=== PATIENT | male | born 1965 | race African-American/Black ===

== ENCOUNTER 2016-08-18 08:06 | Emergency (ER) | payer SELFPAY ==
[~2016-08-18] VITALS: Ht 167.6 cm; Wt 75.0 kg
[2016-08-18 08:08] VITALS: BP 161/79; PULSE 74; RESP 15; TEMP 97.8; O2SAT 98
--- NOTE | 2016-08-18 09:14 | PD ---
HPI . penile discharge for 2-3 days Chief Complaint: Complaint Time Seen by Provider: 09:13 Travel History International Travel<30 days: No Contact w/Intl Traveler<30days: No Traveled to known affect area: No History of Present Illness HPI 51-year-old male with no significant past medical history here with complaints of penile discharge for approximately 2-3 days. Patient says he had unprotected sex on Saturday and shortly after noticed that there was a white/ yellow discharge coming from the tip of his penis. He does admit to pain with urination. He decided to come to the emergency department for further evaluation. He denies any testicular pain or swelling. He has no rashes or lesions on his body. [facility] Social History Tobacco Use: No Allergies-Medications (Allergen,Severity, Reaction): Coded Allergies: No Known Allergies (Unverified , 08/18/16) Reported Meds & Prescriptions Reported Meds & Active Scripts Active Azithromycin 500 Mg Tab 1,000 Mg PO ONCE Review of Systems General / Constitutional: No: Fever Eyes: No: Visual changes HENT: No: Headaches Cardiovascular: No: Chest Pain or Discomfort Respiratory: No: Shortness of Breath Gastrointestinal: No: Abdominal Pain Genitourinary: Positive: Dysuria, Other (penile discharge) Musculoskeletal: No: Pain Skin: No Rash Neurologic: No: Weakness Psychiatric: No: Depression Endocrine: No: Polydipsia Hematologic/Lymphatic: No: Easy Bruising Physical Exam Narrative GENERAL: AAO x 3, no acute distress, Well-nourished, well-developed patient. SKIN: Warm and dry. No visible rashes or bruising. HEAD: Normocephalic and atraumatic. EYES: No scleral icterus. No injection or drainage. EOM intact, PERRLA ENT: No nasal drainage noted. Mucous membranes pink. Airway patent. NECK: Supple, trachea midline. No JVD. CARDIOVASCULAR: Regular rate and rhythm without murmurs, gallops, or rubs. RESPIRATORY: Breath sounds equal bilaterally. No accessory muscle use. No rhonchi or rales. GASTROINTESTINAL: Abdomen soft, non-tender, nondistended. GENITAL: Pranav BURNETT present: + yellow/white colored thin discharge. No lesions or excoriations. EXTREMITIES: No cyanosis or edema. BACK: Nontender without obvious deformity. No CVA tenderness. PSYCH: AAO x 3, normal affect. Data Data Last Documented VS Vital Signs Date Time Temp Pulse Resp B/P Pulse Ox O2 Delivery O2 Flow Rate FiO2 08/18/16 08:08 97.8 74 15 161/79 98 Orders Gc And Chlamydia Pcr (08/18/16 09:17) Ceftriaxone Inj (Rocephin Inj) (08/18/16 09:30) Sodium Chloride 0.9% Flush (Ns Flush) (08/18/16 09:30) Lidocaine 1% Inj (50 Ml) (Xylocaine 1% I (08/18/16 09:30) MDM Medical Decision Making Medical Screen Exam Complete: Yes Emergency Medical Condition: Yes Medical Record Reviewed: Yes Differential Diagnosis Urethritis, gonorrhea, chlamydia, less likely syphilis Narrative Course 51-year-old male with no significant past medical history here with complaints of penile discharge for approximately 2-3 days. Patient says he had unprotected sex on Saturday and shortly after noticed that there was a white/ yellow discharge coming from the tip of his penis. He does admit to pain with urination. He decided to come to the emergency department for further evaluation. He denies any testicular pain or swelling. He has no rashes or lesions on his body. Patient seen and examined. He does have discharge from his penis. I will go ahead and treat for chlamydia and gonorrhea. I have administered Rocephin in the emergency department. He will be discharged home with azithromycin 1 g. He has been advised to follow-up with his primary care provider. We discussed safe sexual practices. Patient verbalized understanding of instructions, questions were answered, and thanked me for their care. I advised them if their condition worsens, please return to the nearest emergency room for further care. Diagnosis Primary Impression: Urethritis Patient Instructions: General Instructions, Nonspecific Urethritis in Men (ED) Additional Instructions: Please return to emergency department if your symptoms return or worsen. Follow up with your primary care provider for any further testing required. Take medications as prescribed. You may experience tenderness at the site of the injection. This is normal. You can use ice as needed. Med/Other Pt SpecificInfo: Prescription(s) given Scripts Azithromycin 500 Mg Tab1,000 Mg PO ONCE #2 TAB Ref 0 Prov:Jaziel Allred MD 08/18/16 Disposition: 01 DISCHARGE HOME Condition: Stable Candis Ward Aug 18, 2016 09:14
[2016-08-18] MEDS ORDERED: AZIT500T2 PO (09:19)
[2016-08-18] MEDS ORDERED: cefTRIAXone 250 MG VIAL IM ONE (09:30)
[2016-08-18] MEDS ORDERED: LIDOCAINE HCL 1% 50 ML VIAL XX ONE (09:30)
[2016-08-18] MEDS ORDERED: SODIUM CHLORIDE 0.9% FLUSH 10 ML FLUSH IVF PRN (09:30)
[2016-08-18 13:04] LABS: CHLAMYDIA PCR NOT DETECTED (NOT DETECT); NEISSERIA PCR DETECTED (NOT DETECT)
== END 2016-08-18 09:53 | disposition home or self-care (01) ==
LOC: NETRI 08:06
DX: N34.2 Other urethritis (principal)
CPT/HCPCS: 87491; 87591; 96374; 99283; J0696

== ENCOUNTER 2017-10-05 07:56 | Emergency (ER) | payer SELFPAY ==
[~2017-10-05] VITALS: Ht 165.1 cm; Wt 80.0 kg
[~2017-10-05 07:56] MED LIST: AZIT500T2 PO
[2017-10-05 07:59] VITALS: BP 170/84; PULSE 85; RESP 16; TEMP 98.5; O2SAT 99
--- NOTE | 2017-10-05 08:36 | PD ---
HPI Chief Complaint: Complaint Time Seen by Provider: 08:27 Travel History International Travel<30 days: No Contact w/Intl Traveler<30days: No Traveled to known affect area: No History of Present Illness HPI 52-year-old male presents to emergency department with complaint of burning on urination and drainage from his penis since yesterday. Said he had unprotected sex on Saturday. Denies testicular pain, swelling. Denies penile pain. Denies abdominal pain, fever, vomiting. Unknown exposure to STD/STI. Has not taken any medication or try any treatments to alleviate his symptoms. No known aggravating or relieving factors. Symptoms are mild to moderate in severity. No primary care provider. No known allergies. Denies significant past medical history. Has no medical complaints. No other modifying factors or associated signs and symptoms. [facility] Social History Tobacco Use: No Allergies-Medications (Allergen,Severity, Reaction): Coded Allergies: No Known Allergies (Unverified , 08/18/16) Reported Meds & Prescriptions Reported Meds & Active Scripts Active Keflex (Cephalexin) 500 Mg Cap 500 Mg PO Q12H 7 Days Review of Systems Except as stated in HPI: all other systems reviewed are Neg Physical Exam Narrative GENERAL: Well-nourished, well-developed black male patient, in no acute distress SKIN: Warm and dry. HEAD: Atraumatic. Normocephalic. EYES: Pupils equal and round. ENT: Mucosa pink and moist. NECK: Trachea midline. No lymphadenopathy. CARDIOVASCULAR: Regular rate RESPIRATORY: No accessory muscle use. GASTROINTESTINAL: Flat. GENITOURINARY: Exam done in the presence of a nurse. UnCircumcised. Testes descended bilaterally without evidence of rotation. No lesions or erythema. Milky white urethral discharge. MUSCULOSKELETAL: No obvious deformities. No clubbing. No cyanosis. No edema. NEUROLOGICAL: Awake and alert. Oriented 3. No obvious cranial nerve deficits. Motor grossly within normal limits. Normal speech. Moves all extremities. 5/5 strength to all extremities. PSYCHIATRIC: Appropriate mood and affect; insight and judgment normal. Data Data Last Documented VS Vital Signs Date Time Temp Pulse Resp B/P (MAP) Pulse Ox O2 Delivery O2 Flow Rate FiO2 10/05/17 07:59 98.5 85 16 170/84 (112) 99 Orders Orders Gc And Chlamydia Pcr (10/05/17 08:28) Urinalysis - C+S If Indicated (10/05/17 08:28) Azithromycin Powd Pack (Zithromax Powd P (10/05/17 08:45) Ceftriaxone Inj (Rocephin Inj) (10/05/17 08:45) Lidocaine 1% Inj (50 Ml) (Xylocaine 1% I (10/05/17 08:45) Metronidazole (Flagyl) (10/05/17 08:45) Urine Culture (10/05/17 09:00) Ed Discharge Order (10/05/17 10:21) Labs Laboratory Tests Test 10/05/17 09:00 Urine Color YELLOW Urine Turbidity HAZY Urine pH 6.0 Urine Specific [place] 1.018 Urine Protein 30 mg/dL Urine Glucose (UA) NEG mg/dL Urine Ketones NEG mg/dL Urine Occult Blood NEG Urine Nitrite NEG Urine Bilirubin NEGATIVE Urine Urobilinogen LESS THAN 2.0 MG/DL Urine Leukocyte Esterase MOD Urine RBC 1 /hpf Urine WBC 77 /hpf Urine Squamous Epithelial Cells <1 /hpf Urine Bacteria RARE /hpf Microscopic Urinalysis Comment CULTURE INDICATED MDM Medical Decision Making Medical Screen Exam Complete: Yes Emergency Medical Condition: Yes Medical Record Reviewed: Yes Differential Diagnosis Urethritis, chlamydia, gonorrhea, trichomonas Narrative Course 52-year-old male with urethritis. Urinalysis ordered. Chlamydia and gonorrhea pending. Patient empirically treated with azithromycin, Rocephin, Flagyl in the ER. 1020: Urinalysis for signs of infection and reflex to culture. Keflex prescribed for home. Instructed patient to follow-up with [facility] department or primary care provider for further STD/STI screening. Instructed patient to follow up with primary care provider. Patient verbalizes understanding and agreement with treatment plan. Patient is medically cleared and stable for discharge. Discussed reasons to return to the emergency department. Patient agrees with treatment plan. The patients vital signs are stable and the patient is stable for outpatient follow-up and treatment. Patient discharged home, stable and in no acute distress. Diagnosis Primary Impression: Urethritis Additional Impression: UTI (urinary tract infection) Qualified Codes: N39.0 - Urinary tract infection, site not specified Referrals: [facility] Primary Care Physician [facility] Dept. Patient Instructions: General Instructions, Nonspecific Urethritis in Men (ED) , Urinary Tract Infection in Men (ED) Additional Instructions: Avoid sexual activity for 14 days No sexual activity with your partner/s until they have been treated and waited 14 days Inform all sexual partners within the past 3-6 months that they need to be evaluated and treated Use condoms every time you have sex Follow-up with primary care provider Return to the emergency department immediately with worsening of symptoms Med/Other Pt SpecificInfo: Prescription(s) given Scripts Cephalexin (Keflex) 500 Mg Cap 500 MG PO Q12H for Infection for 7 Days, #14 CAP 0 Refills Prov: Yajaira Yates 10/05/17 Disposition: 01 DISCHARGE HOME Condition: Stable Yajaira Yates October 05, 2017 08:36
[2017-10-05] MEDS ORDERED: AZITHROMYCIN PWD FOR SUSP 1 GM PACKET PO ONE (08:45)
[2017-10-05] MEDS ORDERED: LIDOCAINE HCL 1% 50 ML VIAL IM ONE (08:45)
[2017-10-05] MEDS ORDERED: metroNIDAZOLE 500 MG TAB PO ONE (08:45)
[2017-10-05] MEDS ORDERED: cefTRIAXone 250 MG VIAL IM ONE (08:45)
[2017-10-05 10:07] LABS: GLUCOSE,URINE NEG (NEG); URINE COLOR YELLOW (YELLW/STRAW)
[2017-10-05 10:08] LABS: BILIRUBIN, URINE NEGATIVE (NEG); BLOOD, URINE NEG (NEG); KETONE, URINE NEG (NEG); NITRITE,URINE NEG (NEG); URINE LEUKOCYTE ESTERASE MOD (NEG)
[2017-10-05 10:10] LABS: BACTERIA, URINE RARE /hpf; SQUAMOUS EPITHELIAL CELL URINE <1 /hpf (0-5)
[2017-10-05] MEDS ORDERED: CEPH-460 PO (10:15)
== END 2017-10-05 10:23 | disposition home or self-care (01) ==
LOC: NEPD 07:56
DX: N34.2 Other urethritis (principal); N39.0 Urinary tract infection, site not specified
CPT/HCPCS: 81001; 87491; 87591; 96372; 99283; J0696; 87086